=== PATIENT | male | born 1960 | race Caucasian/White ===

== ENCOUNTER 2017-02-12 12:01 | Emergency (ER) | payer BC ==
[~2017-02-12] VITALS: Ht 177.8 cm; Wt 85.0 kg
[2017-02-12 12:12] VITALS: BP 114/81; PULSE 91; RESP 19; TEMP 79.8; TEMP 97.8; O2SAT 100
[2017-02-12] MEDS ORDERED: MECL12.574 PO (12:23)
[2017-02-12] MEDS ORDERED: METO25TA3 PO (12:23)
[2017-02-12] MEDS ORDERED: SODIUM CHLOR 0.9% 1000 ML INJ 1,000 ML IV SCH (12:25)
[2017-02-12] MEDS ORDERED: ONDANSETRON HCL 4 MG/2 ML VIAL IVP ONE (12:30)
[2017-02-12 12:36] VITALS: O2SAT 97
--- NOTE | 2017-02-12 12:36 | PD ---
HPI Chief Complaint: GI Complaint Time Seen by Provider: 12:19 Travel History International Travel<30 days: No Contact w/Intl Traveler<30days: No Traveled to known affect area: No History of Present Illness HPI 56 years old male complains of abdominal cramping and nausea vomiting and dizziness. Patient states the symptoms started this morning. Patient states that family members with same symptoms. Patient denies any headache. Patient denies any coughing congestion. Patient denies any chest pain or shortness of breath. Patient denies any fever chills. Patient denies any dysuria or frequency. Patient denies any back pain. PFSH Past Medical History Hypertension: Yes Medical other: Yes (VERTIGO) ?: Not Past Surgical History Abdominal Surgery: Yes (HERNIA) Social History Alcohol Use: No Tobacco Use: No Substance Use: No Allergies-Medications (Allergen,Severity, Reaction): Coded Allergies: No Known Allergies (Unverified , 02/12/17) Reported Meds & Prescriptions Reported Meds & Active Scripts Active Reported Meclizine (Meclizine HCl) 12.5 Mg Tab Unknown Dose PO DIRECTED PRN Metoprolol Tartrate 25 Mg Tab Unknown Dose PO DAILY Review of Systems General / Constitutional: No: Fever Eyes: No: Visual changes HENT: No: Headaches Cardiovascular: No: Chest Pain or Discomfort Respiratory: No: Shortness of Breath Gastrointestinal: Positive: Nausea, Vomiting, Abdominal Pain Genitourinary: No: Dysuria Musculoskeletal: No: Pain Skin: No Rash Neurologic: No: Weakness Psychiatric: No: Depression Endocrine: No: Polydipsia Hematologic/Lymphatic: No: Easy Bruising Physical Exam Narrative GENERAL: Well-nourished, well-developed patient. SKIN: Focused skin assessment warm/dry. HEAD: Normocephalic. EYES: No scleral icterus. No injection or drainage. NECK: Supple, trachea midline. No JVD or lymphadenopathy. CARDIOVASCULAR: Regular rate and rhythm without murmurs, gallops, or rubs. RESPIRATORY: Breath sounds equal bilaterally. No accessory muscle use. GASTROINTESTINAL: Abdomen soft, non-tender, nondistended. MUSCULOSKELETAL: No cyanosis, or edema. BACK: Nontender without obvious deformity. No CVA tenderness. Neurologic exam normal. Data Data Last Documented VS Vital Signs Date Time Temp Pulse Resp B/P Pulse Ox O2 Delivery O2 Flow Rate FiO2 02/12/17 12:36 97 02/12/17 12:12 97.8 91 19 114/81 Orders Complete Blood Count With Diff (02/12/17 12:25) Comprehensive Metabolic Panel (02/12/17 12:25) Lipase (02/12/17 12:25) Iv Access Insert/Monitor (02/12/17 12:25) Ecg Monitoring (02/12/17 12:25) Oximetry (02/12/17 12:25) Ondansetron Inj (Zofran Inj) (02/12/17 12:30) Sodium Chlor 0.9% 1000 Ml Inj (Ns 1000 M (02/12/17 12:25) Labs Laboratory Tests Test 02/12/17 12:30 White Blood Count 10.4 TH/MM3 Red Blood Count 5.55 MIL/MM3 Hemoglobin 16.5 GM/DL Hematocrit 49.1 % Mean Corpuscular Volume 88.4 FL Mean Corpuscular Hemoglobin 29.8 PG Mean Corpuscular Hemoglobin 33.7 % Concent Red Cell Distribution Width 12.3 % Platelet Count 229 TH/MM3 Mean Platelet Volume 7.9 FL Neutrophils (%) (Auto) 90.1 % Lymphocytes (%) (Auto) 3.7 % Monocytes (%) (Auto) 4.1 % Eosinophils (%) (Auto) 0.9 % Basophils (%) (Auto) 1.2 % Neutrophils # (Auto) 9.4 TH/MM3 Lymphocytes # (Auto) 0.4 TH/MM3 Monocytes # (Auto) 0.4 TH/MM3 Eosinophils # (Auto) 0.1 TH/MM3 Basophils # (Auto) 0.1 TH/MM3 CBC Comment DIFF FINAL Differential Comment Sodium Level 145 MEQ/L Potassium Level 4.4 MEQ/L Chloride Level 111 MEQ/L Carbon Dioxide Level 22.5 MEQ/L Anion Gap 12 MEQ/L Blood Urea Nitrogen 24 MG/DL Creatinine 1.30 MG/DL Estimat Glomerular Filtration 57 ML/MIN Rate Random Glucose 96 MG/DL Calcium Level 8.8 MG/DL Total Bilirubin 0.7 MG/DL Aspartate Amino Transf 36 U/L (AST/SGOT) Alanine Aminotransferase 41 U/L (ALT/SGPT) Alkaline Phosphatase 60 U/L Total Protein 7.5 GM/DL Albumin 3.8 GM/DL Lipase 170 U/L MDM Medical Decision Making Medical Screen Exam Complete: Yes Emergency Medical Condition: Yes Interpretation(s) 1305 p.m. CBC within normal limit. CMP within normal limit. Differential Diagnosis Differential diagnosis including gastroenteritis, dehydration, electrolyte imbalance, colitis, UTI, vertigo. Narrative Course 56 years old male with abdominal pain, nausea vomiting. Normal saline solution 1 L IV bolus. Zofran 4 mg IV. Diagnosis Primary Impression: Gastroenteritis Patient Instructions: General Instructions Additional Instructions: Clear fluids today and advance diet as tolerated. Zofran as needed for nausea vomiting. Follow-up with personal physician. Return if persistent problem or worse. Med/Other Pt SpecificInfo: Prescription(s) given Scripts Dicyclomine (Bentyl)10 Mg Cap10 Mg PO TID PRN (PAIN SCALE 1 TO 10) #15 CAP Ref 0 Prov:Felix Wilson MD 02/12/17 Ondansetron Odt (Zofran Odt)4 Mg Tab4 Mg SL Q6HR PRN (Nausea/Vomiting) #10 TAB Prov:Felix Wilson MD 02/12/17 Disposition: 01 DISCHARGE HOME Condition: Stable Felix Wilson MD Feb 12, 2017 12:36
[2017-02-12 12:40] LABS: AUTOMATED NEUTROPHIL # 9.4 TH/MM3 (1.8-7.7); BASOPHIL # 0.1 TH/MM3 (0-0.2); BASOPHIL % 1.2 % (0.0-2.0); EOSINOPHIL # 0.1 TH/MM3 (0-0.4); EOSINOPHIL % 0.9 % (0.0-4.0); HEMATOCRIT 49.1 % (39.0-51.0); HEMO FLAGS DIFF FINAL; LYMPH % 3.7 % (9.0-44.0); LYMPHOCYTE # 0.4 TH/MM3 (1.0-4.8); MEAN CELL VOLUME 88.4 FL (80.0-100.0); MEAN CORPUSCULAR HEMOGLOBIN 29.8 PG (27.0-34.0); MEAN CORPUSCULAR HGB CONC 33.7 % (32.0-36.0); MONO % 4.1 % (0.0-8.0); NEUT % 90.1 % (16.0-70.0); PLATELET COUNT 229 TH/MM3 (150-450); RED BLOOD COUNT 5.55 MIL/MM3 (4.50-5.90); RED CELL DISTRIBUTION WIDTH 12.3 % (11.6-17.2); WHITE BLOOD COUNT 10.4 TH/MM3 (4.0-11.0)
[2017-02-12 12:48] LABS: CHLORIDE 111 MEQ/L (98-107); POTASSIUM 4.4 MEQ/L (3.5-5.1); SODIUM (NA) 145 MEQ/L (136-145)
[2017-02-12 12:52] LABS: ANION GAP 12 MEQ/L (5-15); BICARBONATE 22.5 MEQ/L (21.0-32.0)
[2017-02-12 12:53] LABS: BLOOD UREA NITROGEN 24 MG/DL (7-18)
[2017-02-12 12:55] LABS: ALT (GPT) 41 U/L (12-78); AST (GOT) 36 U/L (15-37)
[2017-02-12 12:56] LABS: GLOMERULAR FILTRATION RATE 57 ML/MIN (>89)
[2017-02-12 12:57] LABS: TOTAL BILIRUBIN ADULT 0.7 MG/DL (0.2-1.0)
[2017-02-12 12:58] LABS: ALKALINE PHOSPHATASE 60 U/L (45-117)
[2017-02-12] MEDS ORDERED: ZOFR4TAB3 SL (13:10)
[2017-02-12] MEDS ORDERED: DICY10 PO (13:11)
== END 2017-02-12 13:24 | disposition home or self-care (01) ==
LOC: PHED 12:01
DX: I10 Essential (primary) hypertension (principal); K52.9 Noninfective gastroenteritis and colitis, unspecified; R42 Dizziness and giddiness
CPT/HCPCS: 80053; 83690; 85025; 96361; 96374; 99284; J2405; J7030